=== PATIENT | male | born 1930 | race Caucasian/White ===

== ENCOUNTER 2016-08-11 08:59 | Emergency (ER) | payer MEDICARE, OTHER ==
[~2016-08-11 08:59] MED LIST: /WARF2TA PO; ALBUTEROL NEB; ALLO300T2 PO; BISO5TAB5 PO; FURO80TA2 PO; OMEP20CA3 PO; VITA100037 PO; WARF2TAB44 PO; WARF4TAB28 PO
[2016-08-11 09:32] LABS: BASO # 0.2 K/mm3 (0.0-0.2); BASO % 1.8 % (0.0-1.0); EOS # 0.3 K/mm3 (0.0-0.50); EOS % 3.2 % (0.0-3.0); LARGE UNSTAINED CELL # 0.1 K/mm3 (0.0-0.4); LARGE UNSTAINED CELL % 1.2 % (0.0-4.0); LYMPH % 7.9 % (24.0-44.0); MEAN CORPUSCULAR HEMOGLOBIN 30.6 pg (27.0-33.0); MEAN CORPUSCULAR HGB CONC 30.4 g/dl (32.0-36.5); MEAN CORPUSCULAR VOLUME 100.8 fl (80.0-96.0); MONO # 0.5 K/mm3 (0.0-0.8); MONO % 4.8 % (0.0-5.0); NEUTROPHILS # 8.6 K/mm3 (1.8-7.7); PLATELET COUNT, AUTOMATED 182 k/mm3 (150-450); RED CELL DISTRIBUTION WIDTH 15.6 % (11.5-14.5); WHITE BLOOD COUNT 10.7 K/mm3 (4.0-10.0)
[2016-08-11 09:35] LABS: INR 2.13
[2016-08-11 09:46] LABS: ALBUMIN 3.8 GM/DL (3.2-5.2); ALBUMIN/GLOBULIN RATIO 0.95 (1.00-1.93); ALKALINE PHOSPHATASE 123 U/L (45-117); ALT/SGPT 14 U/L (12-78); ANION GAP 6 MEQ/L (8-16); AST/SGOT 12 U/L (15-37); BILIRUBIN,DIRECT < 0.1 MG/DL (0.0-0.2); BILIRUBIN,TOTAL 0.4 MG/DL (0.2-1.0); BLOOD UREA NITROGEN 25 MG/DL (7-18); CALCIUM LEVEL 9.5 MG/DL (8.8-10.2); CARBON DIOXIDE LEVEL 33 MEQ/L (21-32); CHLORIDE LEVEL 103 MEQ/L (98-107); CREATININE FOR GFR 1.29 MG/DL (0.70-1.30); GLOMERULAR FILTRATION RATE 56.4 (>35); GLUCOSE, FASTING 115 MG/DL (83-110); POTASSIUM SERUM 3.9 MEQ/L (3.5-5.1); SODIUM LEVEL 142 MEQ/L (136-145); TOTAL PROTEIN 7.8 GM/DL (6.4-8.2)
[2016-08-11] MEDS ORDERED: NITROFURANTOIN (MACROBID) 100 MG CAP As Ordered ONE (11:44)
--- NOTE | 2016-08-11 12:16 | EDDOCDS ---
Physician Documentation [facility] Name: Milind Lamas Age: 86 yrs Sex: Male : 1930 Arrival Date: 08/11/2016 Time: 08:59 Bed 2 Private MD: Disposition: 08/11/16 11:42 Discharged to Home/Self Care. Impression: Urinary tract infection, site not specified. - Condition is Stable. - Discharge Instructions: Urinary Tract Infection, Altered Mental Status. - Prescriptions for Macrobid 100 mg Oral Capsule - take 100 milligrams by ORAL route every 12 hours for 7 days; 14 capsule. - Medication Reconciliation, Local Pharmacy Hours form. - Follow up: Aniya Loyola; When: 2 - 3 days; Reason: Recheck today's complaints. - Problem is new. - Symptoms are unchanged. - Notes: You were seen in the ED for concerns of altered mental status. Urine test showed urinary tract infection. Bloodwork along with chest Xray and CT scan of the head showed no other acute findings. You may take the antibiotics as written and will need to see your primary doctor for follow up and recheck. Please call to arrange to be seen. Return to the ED for any worsening confusion, fever, vomiting, chest pain, trouble breathing or any other concerns. Historical: - Allergies: no known allergies; - Home Meds: 1. Tylenol 1000 mg Oral three times a day 2. allopurinol 300 mg Oral tab 1 tab once daily 3. furosemide 80 mg Oral tab 1 tab once daily 4. gabapentin 400 mg oral tab 3 times per day 5. omeprazole 20 mg Oral cpDR 1 cap once daily 6. Vitamin D Oral 1,000 unit daily 7. iron 50mg daily 8. magnesium 250 mg daily 9. tamsulosin 0.4 mg oral cp24 1 cap once daily 10. warfarin 1 mg Oral tab 1 tab once daily - PMHx: bladder cancer; lung cancer; - PSHx: Appendectomy; Lobectomy; - Social history: Smoking status: Patient states former smoker of tobacco. No barriers to communication noted, The patient speaks fluent Colombian, Speaks appropriately for age. - Family history: Not pertinent. - : The pt / caregiver states he / she is on anticoagulants: coumadin. Note unable yto verify- has med list of when he takes meds and doses. - Exposure Risk Screening:: None identified. Vital Signs: 08/11 09:07 BP 120 / 57; Pulse 117; Resp 18; Temp 98.2(TE); Pulse Ox 86% on R/A; Weight 92.12 kg / ml6 203.09 lbs (M); Height 5 ft. 8 in. (172.72 cm) (R); Pain 0/10; 09:21 Pulse 99; Resp 16; Pulse Ox 98% on 2 lpm NC; ml6 10:30 BP 124 / 74 (auto/); ml6 10:30 Pulse 102 MON; Resp 18; Pulse Ox 97% on 2 lpm NC; ml6 10:45 BP 108 / 79 (auto/); ml6 10:45 Pulse 101 MON; Resp 16; Pulse Ox 98% on 2 lpm NC; ml6 11:00 BP 123 / 76 (auto/); ml6 11:00 Pulse 108 MON; Resp 16; Pulse Ox 98% on 2 lpm NC; Pain 0/10; ml6 11:15 BP 138 / 70 (auto/); ml6 11:15 Pulse 108 MON; Resp 16; Pulse Ox 98% on R/A; Pain 0/10; ml6 11:30 BP 102 / 66 (auto/); ml6 11:30 Pulse 100 MON; Resp 18; Temp 98.3(O); Pulse Ox 98% on R/A; Pain 0/10; ml6 12:14 BP 128 / 68; Pulse 95; Resp 16; Temp 98.4(O); Pulse Ox 97% on R/A; Pain 0/10; ml6 09:07 Body Mass Index 30.88 (92.12 kg, 172.72 cm) ml6 MDM: 09:24 Sitecore Developer/Pulse Ox/q 15 min VS ordered. br1 09:24 IV Saline Lock ordered. br1 09:24 Rhythm Strip to chart ordered. br1 09:25 CBC with Diff Ordered. EDMS 09:25 Cardiac Injury Profile Ordered. EDMS 09:25 Liver Profile Ordered. EDMS 09:25 MED Profile Ordered. EDMS 09:25 Thyroid Stimulating Hormone Ordered. EDMS 09:25 Troponin Ordered. EDMS 09:25 Urinalysis Ordered. EDMS 09:25 Urine Culture Ordered. EDMS 09:25 CT Head Without Contrast Ordered. EDMS 09:25 ECG WITH READING ER PHYS+CARDIAG ordered. EDMS 09:26 PT/INR Ordered. EDMS 09:26 PTT Ordered. EDMS 09:27 Chest, 2 View (pa\E\lat) Ordered. EDMS 09:55 CBC with Diff Reviewed. br1 09:55 Cardiac Injury Profile Reviewed. br1 09:55 Liver Profile Reviewed. br1 09:55 MED Profile Reviewed. br1 09:55 PT/INR Reviewed. br1 09:55 PTT Reviewed. br1 09:55 Thyroid Stimulating Hormone Reviewed. br1 09:55 Troponin Reviewed. br1 10:32 Financial registration complete. lg 10:32 [facility] Payment Agreement was scanned into [employer] and attached to record. lg 10:37 Misc. Nursing Order ordered. br1 11:29 Urinalysis Reviewed. br1 11:32 Nitrofurantoin 100 mg PO once ordered. br1 Administered Medications: 12:12 Drug: Nitrofurantoin 100 mg Route: PO; ml6 Signatures: Dispatcher [employer] EDAlisa Burgess, RN RN srm Katina Okeefe, Reg Reg Troy Beyer MD MD br1 [address]o [address] RN RN ml6 The chart was reviewed and I authenticate all verbal orders and agree with the evaluation and treatment provided.Corrections: (The following items were deleted from the chart) 11:03 10:37 Straight cath ordered. br1 ml6 Attachments: 10:32 [facility] Payment Agreement lg MTDD
--- NOTE | 2016-08-11 12:16 | EDDOCDS ---
Nurse's Notes [facility] Name: Milind Lamas Age: 86 yrs Sex: Male : 1930 Arrival Date: 08/11/2016 Time: 08:59 Bed 2 Private MD: Diagnosis: Urinary tract infection, site not specified Presentation: 08/11 09:02 Presenting complaint: EMS states: pt unable to stand and use urinal today at home. srm family states he's a little altered today. yesterday started with productive cough. ems stats pt asking the same ques over and over again enroute to [facility]. FSBS 151. Adult Sepsis Screening: Patient has new or worsening altered mentation (1 point). Patient's respiratory rate is less than 22. Systolic blood pressure is greater than 100. Patient has a qSOFA score of 1- Negative Sepsis Screen. Suicide/Homicide risk assessment- the patient denies having any suicidal and/or homicidal ideations and does not present with any other emotional, behavioral or mental health complaints. Status: Patient is not a member services coordinator or dependent. Transition of care: patient was not received from another setting of care. 09:02 Acuity: MORENA Level 2 [facility] 09:02 Method Of Arrival: Ambulance [facility] 09:11 Care prior to arrival: Glucose check. 151. [facility] Triage Assessment: 09:08 General: Appears in no apparent distress, Behavior is appropriate for age, cooperative. [facility] Pain: Denies pain. Neurological: Level of Consciousness is awake, alert, Oriented to person, place, Facial symmetry appears normal. Historical: - Allergies: no known allergies; - Home Meds: 1. Tylenol 1000 mg Oral three times a day 2. allopurinol 300 mg Oral tab 1 tab once daily 3. furosemide 80 mg Oral tab 1 tab once daily 4. gabapentin 400 mg oral tab 3 times per day 5. omeprazole 20 mg Oral cpDR 1 cap once daily 6. Vitamin D Oral 1,000 unit daily 7. iron 50mg daily 8. magnesium 250 mg daily 9. tamsulosin 0.4 mg oral cp24 1 cap once daily 10. warfarin 1 mg Oral tab 1 tab once daily - PMHx: bladder cancer; lung cancer; - PSHx: Appendectomy; Lobectomy; - Social history: Smoking status: Patient states former smoker of tobacco. No barriers to communication noted, The patient speaks fluent Lebanese, Speaks appropriately for age. - Family history: Not pertinent. - : The pt / caregiver states he / she is on anticoagulants: coumadin. Note unable yto verify- has med list of when he takes meds and doses. - Exposure Risk Screening:: None identified. Screenin:09 Advance Directives: There is an active DNR order and the pt has a copy here at this srm time. There is an active Power of Core Manager, gaby pena. home support is adequate. 12:15 Screening information is obtained from the patient. Fall risk: No risks identified. ml6 Assistance ADL's: requires no assistance with activities of daily living. Abuse/DV Screen: The patient / caregiver reports he/she is: not in a situation that causes fear, pain or injury. Nutritional screening: No deficits noted. Assessment: 09:20 General: Appears in no apparent distress, Behavior is appropriate for age, cooperative. ml6 Pain: Denies pain. Neurological: Level of Consciousness is awake, alert, Oriented to person, place, time, Grocery Clerk Stocking are equal bilaterally Moves all extremities. Full function Speech is normal, Facial symmetry appears normal, Pupils are PERRLA. Cardiovascular: No deficits noted. Capillary refill < 3 seconds is brisk in bilateral fingers toes Heart tones S1 S2 present. Respiratory: No deficits noted. Airway is patent Respiratory effort is even, unlabored, Respiratory pattern is regular, symmetrical. GI: No deficits noted. 10:20 Reassessment: Patient appears in no apparent distress at this time. Patient denies pain ml6 at this time. Patient states feeling better. Patient states symptoms have improved. 11:20 Reassessment: Patient appears in no apparent distress at this time. Patient denies pain ml6 at this time. Patient states feeling better. Patient states symptoms have improved. 12:13 General: Appears in no apparent distress, Behavior is appropriate for age, cooperative. ml6 Pain: Denies pain. Neurological: No deficits noted. Cardiovascular: No deficits noted. Capillary refill < 3 seconds is brisk in bilateral fingers toes Heart tones S1 S2 present. Respiratory: No deficits noted. Airway is patent Respiratory effort is even, unlabored, Respiratory pattern is regular, symmetrical. GI: No deficits noted. Vital Signs: 09:07 BP 120 / 57; Pulse 117; Resp 18; Temp 98.2(TE); Pulse Ox 86% on R/A; Weight 92.12 kg ml6 (M); Height 5 ft. 8 in. (172.72 cm) (R); Pain 0/10; 09:21 Pulse 99; Resp 16; Pulse Ox 98% on 2 lpm NC; ml6 10:30 BP 124 / 74 (auto/); ml6 10:30 Pulse 102 MON; Resp 18; Pulse Ox 97% on 2 lpm NC; ml6 10:45 BP 108 / 79 (auto/); ml6 10:45 Pulse 101 MON; Resp 16; Pulse Ox 98% on 2 lpm NC; ml6 11:00 BP 123 / 76 (auto/); ml6 11:00 Pulse 108 MON; Resp 16; Pulse Ox 98% on 2 lpm NC; Pain 0/10; ml6 11:15 BP 138 / 70 (auto/); ml6 11:15 Pulse 108 MON; Resp 16; Pulse Ox 98% on R/A; Pain 0/10; ml6 11:30 BP 102 / 66 (auto/); ml6 11:30 Pulse 100 MON; Resp 18; Temp 98.3(O); Pulse Ox 98% on R/A; Pain 0/10; ml6 12:14 BP 128 / 68; Pulse 95; Resp 16; Temp 98.4(O); Pulse Ox 97% on R/A; Pain 0/10; ml6 09:07 Body Mass Index 30.88 (92.12 kg, 172.72 cm) ml6 Vitals: 09:07 Log In Time N/A - ambulance arrival. nb2 ED Course: 09:01 Patient visited by Maureen Ambriz PCA. ar3 09:01 Patient moved to Waiting ar3 09:01 Patient moved to 2 srm 09:03 Triage Initiated srm 09:07 Patient visited by Lexie Amaya. nb2 09:07 Placed in gown. Bed in low position. Call light in reach. Side rails up X2. Cardiac nb2 monitor on. Pulse ox on. NIBP on. 09:14 Troy Beyer MD is Attending Physician. br1 09:19 The patient / caregiver is instructed regarding the plan of care and ED course. ml6 09:19 Inserted peripheral IV: 20gauge IV in right forearm and blood collected. Patient ml6 tolerated the procedure well. No procedures done that require assistance. Labs drawn. (by ED staff). Sent per order to lab. O2 via nasal cannula \T\ 2L/min. 09:23 Patient visited by Troy Beyer MD. br1 09:36 Patient visited by Marquita Vela. dem1 09:36 EKG done. (by ED staff). Reviewed by Troy Beyer MD. dem1 09:53 Patient visited by Neto [address] RN. ml6 10:32 Patient name changed from Milind\S\\S\Compeau\S\ to Milind\S\J\S\Compeau. EDMS 10:32 [facility] Payment Agreement was scanned into [employer] and attached to record. lg 10:34 Patient visited by Neto Street RN. ml6 11:03 Urinalysis Sent. ml6 11:03 Urine Culture Sent. ml6 11:04 Patient visited by Neto Street RN. ml6 11:32 Patient visited by Troy Beyer MD. br1 11:42 Aniya Loyola is Referral Physician. br1 12:15 Discontinued IV bleeding controlled, pressure dressing applied, No redness/swelling at ml6 site. Administered Medications: 12:12 Drug: Nitrofurantoin 100 mg Route: PO; ml6 Order Results: Lab Order: CBC with Diff; SPEC'M 08/11/16 09:13 Test: WHITE BLOOD COUNT; Value: 10.7; Range: 4.0-10.0; Abnormal: Above high normal; Units: K/mm3; Status: F Test: RED BLOOD COUNT; Value: 3.80; Range: 4.30-6.10; Abnormal: Below low normal; Units: M/mm3; Status: F Test: HEMOGLOBIN; Value: 11.6; Range: 14.0-18.0; Abnormal: Below low normal; Units: g/dl; Status: F Test: HEMATOCRIT; Value: 38.3; Range: 42.0-52.0; Abnormal: Below low normal; Units: %; Status: F Test: MEAN CORPUSCULAR VOLUME; Value: 100.8; Range: 80.0-96.0; Abnormal: Above high normal; Units: fl; Status: F Test: MEAN CORPUSCULAR HEMOGLOBIN; Value: 30.6; Range: 27.0-33.0; Units: pg; Status: F Test: MEAN CORPUSCULAR HGB CONC; Value: 30.4; Range: 32.0-36.5; Abnormal: Below low normal; Units: g/dl; Status: F Test: RED CELL DISTRIBUTION WIDTH; Value: 15.6; Range: 11.5-14.5; Abnormal: Above high normal; Units: %; Status: F Test: PLATELET COUNT, AUTOMATED; Value: 182; Range: 150-450; Units: k/mm3; Status: F Test: NEUTROPHILS %; Value: 81.0; Range: 36.0-66.0; Abnormal: Above high normal; Units: %; Status: F Test: LYMPH %; Value: 7.9; Range: 24.0-44.0; Abnormal: Below low normal; Units: %; Status: F Test: MONO %; Value: 4.8; Range: 0.0-5.0; Units: %; Status: F Test: EOS %; Value: 3.2; Range: 0.0-3.0; Abnormal: Above high normal; Units: %; Status: F Test: BASO %; Value: 1.8; Range: 0.0-1.0; Abnormal: Above high normal; Units: %; Status: F Test: LARGE UNSTAINED CELL %; Value: 1.2; Range: 0.0-4.0; Units: %; Status: F Test: NEUTROPHILS #; Value: 8.6; Range: 1.8-7.7; Abnormal: Above high normal; Units: K/mm3; Status: F Test: LYMPH #; Value: 1.0; Range: 1.5-4.5; Abnormal: Below low normal; Units: K/mm3; Status: F Test: MONO #; Value: 0.5; Range: 0.0-0.8; Units: K/mm3; Status: F Test: EOS #; Value: 0.3; Range: 0.0-0.50; Units: K/mm3; Status: F Test: BASO #; Value: 0.2; Range: 0.0-0.2; Units: K/mm3; Status: F Test: LARGE UNSTAINED CELL #; Value: 0.1; Range: 0.0-0.4; Units: K/mm3; Status: F Lab Order: Cardiac Injury Profile; [facility]08/11/16 09:13 Test: CPK CREATINE PHOSPHOKINASE; Value: 30; Range: 39-308; Abnormal: Below low normal; Units: U/L; Status: F Test: CK-MB VALUE MASS; Value: 1.0; Range: 0.0-3.6; Units: NG/ML; Status: F Test: MB/CK RELATIVE INDEX; Value: 3.33; Range: < OR =4; Status: F Test Note: ; DIAGNOSIS CRITERIA MMB ng/ml Relative Index (RI) NON-AMI < or = 5 N/A [place] > 5 < or = 4 AMI > 5 > 4 Lab Order: Liver Profile; [facility]08/11/16 09:13 Test: AST/SGOT; Value: 12; Range: 15-37; Abnormal: Below low normal; Units: U/L; Status: F Test: ALT/SGPT; Value: 14; Range: 12-78; Units: U/L; Status: F Test: ALKALINE PHOSPHATASE; Value: 123; Range: 45-117; Abnormal: Above high normal; Units: U/L; Status: F Test: BILIRUBIN,TOTAL; Value: 0.4; Range: 0.2-1.0; Units: MG/DL; Status: F Test: BILIRUBIN,DIRECT; Value: < 0.1; Range: 0.0-0.2; Units: MG/DL; Status: F Test: TOTAL PROTEIN; Value: 7.8; Range: 6.4-8.2; Units: GM/DL; Status: F Test: ALBUMIN; Value: 3.8; Range: 3.2-5.2; Units: GM/DL; Status: F Test: ALBUMIN/GLOBULIN RATIO; Value: 0.95; Range: 1.00-1.93; Abnormal: Below low normal; Status: F Lab Order: MED Profile; [facility]08/11/16 09:13 Test: GLUCOSE, FASTING; Value: 115; Range: 83-110; Abnormal: Above high normal; Units: MG/DL; Status: F Test: BLOOD UREA NITROGEN; Value: 25; Range: 7-18; Abnormal: Above high normal; Units: MG/DL; Status: F Test: CREATININE FOR GFR; Value: 1.29; Range: 0.70-1.30; Units: MG/DL; Status: F Test: GLOMERULAR FILTRATION RATE; Value: 56.4; Range: >35; Status: F Test: SODIUM LEVEL; Value: 142; Range: 136-145; Units: MEQ/L; Status: F Test: POTASSIUM SERUM; Value: 3.9; Range: 3.5-5.1; Units: MEQ/L; Status: F Test: CHLORIDE LEVEL; Value: 103; Range: 98-107; Units: MEQ/L; Status: F Test: CARBON DIOXIDE LEVEL; Value: 33; Range: 21-32; Abnormal: Above high normal; Units: MEQ/L; Status: F Test: ANION GAP; Value: 6; Range: 8-16; Abnormal: Below low normal; Units: MEQ/L; Status: F Test: CALCIUM LEVEL; Value: 9.5; Range: 8.8-10.2; Units: MG/DL; Status: F Test Note: ; Units are mL/min/1.73 m2 Chronic Kidney Disease Staging per NKF: Stage I & II GFR >=60 Normal to Mildly Decreased Stage III GFR 30-59 Moderately Decreased Stage IV GFR 15-29 Severely Decreased Stage V GFR <15 Very Little GFR Left ESRD GFR <15 on RESIDENTIAL INSURANCE INSPECTOR Lab Order: Thyroid Stimulating Hormone; SPEC'M 08/11/16 09:13 Test: THYROID STIMULATING HORMONE; Value: 1.100; Range: 0.358-3.740; Units: uIU/ML; Status: F Lab Order: Troponin; SPEC'M 08/11/16 09:13 Test: TROPONIN I; Value: < 0.02; Range: < 0.10; Units: NG/ML; Status: F Test Note: ; Troponin I Reference Interval for Elevate HR LOCI: 99th Percentile= 0.00-0.045 ng/ml Risk Stratification: <= 0.10 ng/ml Decreased Risk for Adverse Clinical Events. 0.10-1.50 ng/ml Increased Risk for Adverse Clinical Events. Evaluation of additional criterion and/or repeat testing in 2-6 hours is suggested to rule out myocardial damage. >= 1.50 ng/ml Indicative of Myocardial Injury. Lab Order: Urinalysis; SPEC'M 08/11/16 11:00 Test: APPEARANCE, URINE; Value: CLOUDY; Range: CLEAR; Abnormal: Above high normal; Status: F Test: COLOR, URINE; Value: YELLOW; Range: YELLOW; Status: F Test: PH,URINE; Value: 5.0; Range: 5.0-9.0; Units: UNITS; Status: F Test: SPECIFIC GRAVITY URINE AUTO; Value: 1.024; Range: 1.002-1.035; Status: F Test: PROTEIN, URINE AUTO; Value: NEGATIVE; Range: NEGATIVE; Units: mg/dL; Status: F Test: GLUCOSE, URINE (UA) AUTO; Value: NEGATIVE; Range: NEGATIVE; Units: mg/dL; Status: F Test: KETONE, URINE AUTO; Value: NEGATIVE; Range: NEGATIVE; Units: mg/dL; Status: F Test: UROBILINOGEN, URINE AUTO; Value: 0.2; Range: 0.0-2.0; Units: mg/dL; Status: F Test: BILIRUBIN, URINE AUTO; Value: NEGATIVE; Range: NEGATIVE; Status: F Test: NITRITE, URINE AUTO; Value: POSITIVE; Range: NEGATIVE; Status: F Test: LEUKOCYTE ESTERASE, URINE AUTO; Value: 3+; Range: NEGATIVE; Abnormal: Above high normal; Status: F Test: BLOOD, URINE BLOOD; Value: NEGATIVE; Range: NEGATIVE; Status: F Test: WBC, URINE AUTO; Value: TNTC; Range: 0-3; Abnormal: Above high normal; Units: /HPF; Status: F Test: RBC, URINE AUTO; Value: 7; Range: 0-3; Abnormal: Above high normal; Units: /HPF; Status: F Test: BACTERIA, URINE AUTO; Value: 1+; Range: NEGATIVE; Abnormal: Above high normal; Status: F Test: SQUAMOUS EPITHELIAL CELL UR AU; Value: 1; Range: 0-6; Units: /HPF; Status: F Test: MUCUS, URINE; Value: SMALL; Range: NEGATIVE; Status: F Test: HYALINE CAST, URINE AUTO; Value: 0; Range: 0-1; Units: /LPF; Status: F Lab Order: PT/INR; SPEC'M 08/11/16 09:13 Test: PROTHROMBIN TIME; Value: 23.9; Range: 12.3-14.5; Abnormal: Above high normal; Units: SECONDS; Status: F Test: INR; Value: 2.13; Status: F Test Note: ; THERAPUTIC HUMAN INR VALUES INDICATIONS NORMAL RANGES PROPHYLAXIS/TREATMENT OF: VENOUS THROMBOSIS 2.0-3.0 PULMONARY EMBOLISM 2.0-3.0 PREVENTION OF SYSTEMIC EMBOLISM FROM: TISSUE HEART VALVES 2.0-3.0 ACUTE MYOCARDIAL INFARCTION 2.0-3.0 VALVULAR HEART DISEASE 2.0-3.0 ATRIAL FIBRILLATION 2.0-3.0 MECHANICAL VALVES(HIGH RISK) 2.5-3.5 RECURRENT MYOCARDIAL INFARCTION 2.5-3.5 Lab Order: PTT; SPEC'M 08/11/16 09:13 Test: PARTIAL THROMBOPLASTIN TIME; Value: 61.5; Range: 26.6-37.1; Abnormal: Above high normal; Units: SECONDS; Status: F Outcome: 11:42 Discharge ordered by Provider. br1 12:15 Discharge Assessment: patient administered narcotics - no. The following High Risk ml6 Discharge criteria are identified: None. Discharged to home ambulatory, with family. Condition: stable. Discharge instructions given to patient, Instructed on discharge instructions, follow up and referral plans. medication usage, Demonstrated understanding of instructions, medications, Pt was receptive of discharge instructions/ teaching. Prescriptions given X 1. CT Study completed. Property :Personal belongings accompany Pt. 12:16 Patient left the ED. ml6 Signatures: Dispatcher [employer] EDMS Alisa Hollingsworth, RN RN srm Katina Okeefe, Reg Reg lg Troy Beyer MD MD br1 Neto Street RN RN ml6 Maureen Ambriz, DAIRY CATTLE FARM MANAGER DAIRY CATTLE FARM MANAGER ar3 Marquita Vela Nicole nb2 Corrections: (The following items were deleted from the chart) 09:21 09:07 BP 120 / 57; Pulse 117bpm; Resp 18bpm; Pulse Ox 95% 2 lpm Nasal Cannula; Temp ml6 98.2F Temporal; Pain 0/10; nb2 09:21 09:21 Pulse Ox 98% 2 lpm Nasal Cannula; ml6 ml6 MTDD
--- NOTE | 2016-08-11 22:45 | REP ---
CT brain without contrast 08/11/16 Indication: altered mental status , evaluate for intracranial hemorrhage Comparison: CT brain 10/15/2012 Findings: There is moderate cerebral volume loss with mild progression. There is no intracranial hemorrhage or extra-axial fluid collection. There is no midline shift or mass effect. Periventricular and subcortical white matter hypodensities are consistent with chronic small vessel ischemic disease. There are extensive bilateral carotid siphon calcifications. There is opacified hypoplastic left sphenoid sinus; minimal fluid and/or mucoperiosteal thickening is seen within the right sphenoid sinus. There is thickening of the nasal turbinate mucosa, right greater than left. There are a few opacified mastoid air cells. Impression: Moderate cerebral volume loss with chronic small vessel ischemic disease. No acute intracranial pathology or hemorrhage Bilateral sphenoid sinusitis ; few opacified right mastoid air cells Signed by Libby Chavez MD 08/11/2016 10:36 P
--- NOTE | 2016-08-11 22:48 | REP ---
AP sitting and lateral chest radiograph 08/11/2016 Indication: Congestion, evaluate for pneumonia Comparison: CT chest without contrast 10/16/2012, AP and lateral chest radiograph 10/20/2012 Findings: Cardiac silhouette is mildly enlarged without change. Atherosclerotic changes are noted in the thoracic aorta. Volume loss in left hemithorax secondary to left sided lobectomy. Postsurgical clips are identified within the left lower neck at the thoracic inlet. There is pulmonary venous hypertension. Impression: Mild cardiomegaly persists . Volume loss in the left hemithorax secondary to prior left sided lobectomy Pulmonary venous hypertension. Bibasilar fibrotic scarring Signed by Libby Chavez MD 08/11/2016 10:39 P
--- NOTE | 2016-08-12 12:59 | ECGEPIP ---
Stationary ECG Study 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
--- NOTE | 2016-08-13 13:16 | EDDOCDS ---
Physician Documentation [facility] Name: Milind Lamas Age: 86 yrs Sex: Male : 1930 Arrival Date: 08/11/2016 Time: 08:59 Bed 2 Private MD: Disposition: 08/11/16 11:42 Discharged to Home/Self Care. Impression: Urinary tract infection, site not specified. - Condition is Stable. - Discharge Instructions: Urinary Tract Infection, Altered Mental Status. - Prescriptions for Macrobid 100 mg Oral Capsule - take 100 milligrams by ORAL route every 12 hours for 7 days; 14 capsule. - Medication Reconciliation, Local Pharmacy Hours form. - Follow up: Aniya Loyola; When: 2 - 3 days; Reason: Recheck today's complaints. - Problem is new. - Symptoms are unchanged. - Notes: You were seen in the ED for concerns of altered mental status. Urine test showed urinary tract infection. Bloodwork along with chest Xray and CT scan of the head showed no other acute findings. You may take the antibiotics as written and will need to see your primary doctor for follow up and recheck. Please call to arrange to be seen. Return to the ED for any worsening confusion, fever, vomiting, chest pain, trouble breathing or any other concerns. Historical: - Allergies: Nitrofurantoin Macrocrystal (Unknown); - Home Meds: 1. Tylenol 1000 mg Oral three times a day 2. allopurinol 300 mg Oral tab 1 tab once daily 3. furosemide 80 mg Oral tab 1 tab once daily 4. gabapentin 400 mg oral tab 3 times per day 5. omeprazole 20 mg Oral cpDR 1 cap once daily 6. Vitamin D Oral 1,000 unit daily 7. iron 50mg daily 8. magnesium 250 mg daily 9. tamsulosin 0.4 mg oral cp24 1 cap once daily 10. warfarin 1 mg Oral tab 1 tab once daily - PMHx: bladder cancer; lung cancer; - PSHx: Appendectomy; Lobectomy; - Social history: Smoking status: Patient states former smoker of tobacco. No barriers to communication noted, The patient speaks fluent Croatian, Speaks appropriately for age. - Family history: Not pertinent. - : The pt / caregiver states he / she is on anticoagulants: coumadin. Note unable yto verify- has med list of when he takes meds and doses Note Please note that at time of patient arrival, pt listed no known allergies. Chart has been updated to reflect allergies that has profiled at [facility]. - Exposure Risk Screening:: None identified. Vital Signs: 08/11 09:07 BP 120 / 57; Pulse 117; Resp 18; Temp 98.2(TE); Pulse Ox 86% on R/A; Weight 92.12 kg / ml6 203.09 lbs (M); Height 5 ft. 8 in. (172.72 cm) (R); Pain 0/10; 09:21 Pulse 99; Resp 16; Pulse Ox 98% on 2 lpm NC; ml6 10:30 BP 124 / 74 (auto/); ml6 10:30 Pulse 102 MON; Resp 18; Pulse Ox 97% on 2 lpm NC; ml6 10:45 BP 108 / 79 (auto/); ml6 10:45 Pulse 101 MON; Resp 16; Pulse Ox 98% on 2 lpm NC; ml6 11:00 BP 123 / 76 (auto/); ml6 11:00 Pulse 108 MON; Resp 16; Pulse Ox 98% on 2 lpm NC; Pain 0/10; ml6 11:15 BP 138 / 70 (auto/); ml6 11:15 Pulse 108 MON; Resp 16; Pulse Ox 98% on R/A; Pain 0/10; ml6 11:30 BP 102 / 66 (auto/); ml6 11:30 Pulse 100 MON; Resp 18; Temp 98.3(O); Pulse Ox 98% on R/A; Pain 0/10; ml6 12:14 BP 128 / 68; Pulse 95; Resp 16; Temp 98.4(O); Pulse Ox 97% on R/A; Pain 0/10; ml6 09:07 Body Mass Index 30.88 (92.12 kg, 172.72 cm) ml6 MDM: 09:24 Used Car Lot Attendant/Pulse Ox/q 15 min VS ordered. br1 09:24 IV Saline Lock ordered. br1 09:24 Rhythm Strip to chart ordered. br1 09:25 CBC with Diff Ordered. EDMS 09:25 Cardiac Injury Profile Ordered. EDMS 09:25 Liver Profile Ordered. EDMS 09:25 MED Profile Ordered. EDMS 09:25 Thyroid Stimulating Hormone Ordered. EDMS 09:25 Troponin Ordered. EDMS 09:25 Urinalysis Ordered. EDMS 09:25 Urine Culture Ordered. EDMS 09:25 CT Head Without Contrast Ordered. EDMS 09:25 ECG WITH READING ER PHYS+CARDIAG ordered. EDMS 09:26 PT/INR Ordered. EDMS 09:26 PTT Ordered. EDMS 09:27 Chest, 2 View (pa\E\lat) Ordered. EDMS 09:55 CBC with Diff Reviewed. br1 09:55 Cardiac Injury Profile Reviewed. br1 09:55 Liver Profile Reviewed. br1 09:55 MED Profile Reviewed. br1 09:55 PT/INR Reviewed. br1 09:55 PTT Reviewed. br1 09:55 Thyroid Stimulating Hormone Reviewed. br1 09:55 Troponin Reviewed. br1 10:32 Financial registration complete. lg 10:32 [facility] Payment Agreement was scanned into [employer] and attached to record. lg 10:37 [facility]. br1 11:29 Urinalysis Reviewed. br1 11:32 Nitrofurantoin 100 mg PO once ordered. br1 14:29 T-Sheet-- Draft Copy was scanned into [employer] and attached to record. gb 14:29 ECG/EKG was scanned into [employer] and attached to record. gb 14:29 Radiology Report was scanned into [employer] and attached to record. gb 14:30 PCR was scanned into [employer] and attached to record. gb 14:30 Rhythm Strip was scanned into [employer] and attached to record. gb Administered Medications: 12:12 Drug: Nitrofurantoin 100 mg Route: PO; ml6 Signatures: Dispatcher [employer] EDMS Alisa Hollingsworth, RN RN srm Natty Mosher, Reg Reg gb Katina Okeefe, Reg Reg lg Troy Beyer MD MD br[address] RN RN ml6 Mirna Rosas, RN RN jc4 The chart was reviewed and I authenticate all verbal orders and agree with the evaluation and treatment provided.Corrections: (The following items were deleted from the chart) 11:03 10:37 Straight cath ordered. br1 ml6 13:15 09:08 Allergies: no known allergies; srm jc4 Attachments: 10:32 [facility] Payment Agreement lg 14:29 T-Sheet-- Draft Copy gb 14:29 ECG/EKG gb Chart Complete MTDD
--- NOTE | 2016-08-13 13:16 | EDDOCDS ---
Physician Documentation [facility] Name: Milind Lamas Age: 86 yrs Sex: Male : 1930 Arrival Date: 08/11/2016 Time: 08:59 Bed 2 Private MD: Disposition: 08/11/16 11:42 Discharged to Home/Self Care. Impression: Urinary tract infection, site not specified. - Condition is Stable. - Discharge Instructions: Urinary Tract Infection, Altered Mental Status. - Prescriptions for Macrobid 100 mg Oral Capsule - take 100 milligrams by ORAL route every 12 hours for 7 days; 14 capsule. - Medication Reconciliation, Local Pharmacy Hours form. - Follow up: Aniya Loyola; When: 2 - 3 days; Reason: Recheck today's complaints. - Problem is new. - Symptoms are unchanged. - Notes: You were seen in the ED for concerns of altered mental status. Urine test showed urinary tract infection. Bloodwork along with chest Xray and CT scan of the head showed no other acute findings. You may take the antibiotics as written and will need to see your primary doctor for follow up and recheck. Please call to arrange to be seen. Return to the ED for any worsening confusion, fever, vomiting, chest pain, trouble breathing or any other concerns. Historical: - Allergies: Nitrofurantoin Macrocrystal (Unknown); - Home Meds: 1. Tylenol 1000 mg Oral three times a day 2. allopurinol 300 mg Oral tab 1 tab once daily 3. furosemide 80 mg Oral tab 1 tab once daily 4. gabapentin 400 mg oral tab 3 times per day 5. omeprazole 20 mg Oral cpDR 1 cap once daily 6. Vitamin D Oral 1,000 unit daily 7. iron 50mg daily 8. magnesium 250 mg daily 9. tamsulosin 0.4 mg oral cp24 1 cap once daily 10. warfarin 1 mg Oral tab 1 tab once daily - PMHx: bladder cancer; lung cancer; - PSHx: Appendectomy; Lobectomy; - Social history: Smoking status: Patient states former smoker of tobacco. No barriers to communication noted, The patient speaks fluent Malay, Speaks appropriately for age. - Family history: Not pertinent. - : The pt / caregiver states he / she is on anticoagulants: coumadin. Note unable yto verify- has med list of when he takes meds and doses Note Please note that at time of patient arrival, pt listed no known allergies. Chart has been updated to reflect allergies that has profiled at [facility]. - Exposure Risk Screening:: None identified. Vital Signs: 08/11 09:07 BP 120 / 57; Pulse 117; Resp 18; Temp 98.2(TE); Pulse Ox 86% on R/A; Weight 92.12 kg / ml6 203.09 lbs (M); Height 5 ft. 8 in. (172.72 cm) (R); Pain 0/10; 09:21 Pulse 99; Resp 16; Pulse Ox 98% on 2 lpm NC; ml6 10:30 BP 124 / 74 (auto/); ml6 10:30 Pulse 102 MON; Resp 18; Pulse Ox 97% on 2 lpm NC; ml6 10:45 BP 108 / 79 (auto/); ml6 10:45 Pulse 101 MON; Resp 16; Pulse Ox 98% on 2 lpm NC; ml6 11:00 BP 123 / 76 (auto/); ml6 11:00 Pulse 108 MON; Resp 16; Pulse Ox 98% on 2 lpm NC; Pain 0/10; ml6 11:15 BP 138 / 70 (auto/); ml6 11:15 Pulse 108 MON; Resp 16; Pulse Ox 98% on R/A; Pain 0/10; ml6 11:30 BP 102 / 66 (auto/); ml6 11:30 Pulse 100 MON; Resp 18; Temp 98.3(O); Pulse Ox 98% on R/A; Pain 0/10; ml6 12:14 BP 128 / 68; Pulse 95; Resp 16; Temp 98.4(O); Pulse Ox 97% on R/A; Pain 0/10; ml6 09:07 Body Mass Index 30.88 (92.12 kg, 172.72 cm) ml6 MDM: 09:24 Automation Test Developer/Pulse Ox/q 15 min VS ordered. br1 09:24 IV Saline Lock ordered. br1 09:24 Rhythm Strip to chart ordered. br1 09:25 CBC with Diff Ordered. EDMS 09:25 Cardiac Injury Profile Ordered. EDMS 09:25 Liver Profile Ordered. EDMS 09:25 MED Profile Ordered. EDMS 09:25 Thyroid Stimulating Hormone Ordered. EDMS 09:25 Troponin Ordered. EDMS 09:25 Urinalysis Ordered. EDMS 09:25 Urine Culture Ordered. EDMS 09:25 CT Head Without Contrast Ordered. EDMS 09:25 ECG WITH READING ER PHYS+CARDIAG ordered. EDMS 09:26 PT/INR Ordered. EDMS 09:26 PTT Ordered. EDMS 09:27 Chest, 2 View (pa\E\lat) Ordered. EDMS 09:55 CBC with Diff Reviewed. br1 09:55 Cardiac Injury Profile Reviewed. br1 09:55 Liver Profile Reviewed. br1 09:55 MED Profile Reviewed. br1 09:55 PT/INR Reviewed. br1 09:55 PTT Reviewed. br1 09:55 Thyroid Stimulating Hormone Reviewed. br1 09:55 Troponin Reviewed. br1 10:32 Financial registration complete. lg 10:32 [facility] Payment Agreement was scanned into [employer] and attached to record. lg 10:37 [facility] ordered. br1 11:29 Urinalysis Reviewed. br1 11:32 Nitrofurantoin 100 mg PO once ordered. br1 14:29 T-Sheet-- Draft Copy was scanned into [employer] and attached to record. gb 14:29 ECG/EKG was scanned into [employer] and attached to record. gb 14:29 Radiology Report was scanned into [employer] and attached to record. gb 14:30 PCR was scanned into [employer] and attached to record. gb 14:30 Rhythm Strip was scanned into [employer] and attached to record. gb Administered Medications: 12:12 Drug: Nitrofurantoin 100 mg Route: PO; ml6 Signatures: Dispatcher [employer] EDMS Alisa Hollingsworth, RN RN srm Natty Mosher, Reg Reg gb Katina Okeefe, Reg Reg lg Troy Beyer MD MD br[address] RN RN ml6 Mirna Rosas, RN RN jc4 The chart was reviewed and I authenticate all verbal orders and agree with the evaluation and treatment provided.Corrections: (The following items were deleted from the chart) 11:03 10:37 Straight cath ordered. br1 ml6 13:15 09:08 Allergies: no known allergies; srm jc4 Attachments: 10:32 [facility] Payment Agreement lg 14:29 T-Sheet-- Draft Copy gb 14:29 ECG/EKG gb Chart Complete MTDD
--- NOTE | 2016-08-13 13:17 | EDDOCDS ---
Nurse's Notes [facility] Name: Carolyne Lamas Age: 86 yrs Sex: Male : 1930 Arrival Date: 08/11/2016 Time: 08:59 Bed 2 Private MD: Diagnosis: Urinary tract infection, site not specified Presentation: 08/11 09:02 Presenting complaint: EMS states: pt unable to stand and use urinal today at home. srm family states he's a little altered today. yesterday started with productive cough. ems stats pt asking the same ques over and over again enroute to [facility]. FSBS 151. Adult Sepsis Screening: Patient has new or worsening altered mentation (1 point). Patient's respiratory rate is less than 22. Systolic blood pressure is greater than 100. Patient has a qSOFA score of 1- Negative Sepsis Screen. Suicide/Homicide risk assessment- the patient denies having any suicidal and/or homicidal ideations and does not present with any other emotional, behavioral or mental health complaints. 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 Transition of care: patient was not received from another setting of care. 09:02 Acuity: MORENA Level 2 [facility] 09:02 Method Of Arrival: Ambulance [facility] 09:11 Care prior to arrival: Glucose check. 151. [facility] Triage Assessment: 09:08 General: Appears in no apparent distress, Behavior is appropriate for age, cooperative. [facility] Pain: Denies pain. Neurological: Level of Consciousness is awake, alert, Oriented to person, place, Facial symmetry appears normal. Historical: - Allergies: Nitrofurantoin Macrocrystal (Unknown); - Home Meds: 1. Tylenol 1000 mg Oral three times a day 2. allopurinol 300 mg Oral tab 1 tab once daily 3. furosemide 80 mg Oral tab 1 tab once daily 4. gabapentin 400 mg oral tab 3 times per day 5. omeprazole 20 mg Oral cpDR 1 cap once daily 6. Vitamin D Oral 1,000 unit daily 7. iron 50mg daily 8. magnesium 250 mg daily 9. tamsulosin 0.4 mg oral cp24 1 cap once daily 10. warfarin 1 mg Oral tab 1 tab once daily - PMHx: bladder cancer; lung cancer; - PSHx: Appendectomy; Lobectomy; - Social history: Smoking status: Patient states former smoker of tobacco. No barriers to communication noted, The patient speaks fluent Lithuanian, Speaks appropriately for age. - Family history: Not pertinent. - : The pt / caregiver states he / she is on anticoagulants: coumadin. Note unable yto verify- has med list of when he takes meds and doses Note Please note that at time of patient arrival, pt listed no known allergies. Chart has been updated to reflect allergies that has profiled at [facility]. - Exposure Risk Screening:: None identified. Screenin:09 Advance Directives: There is an active DNR order and the pt has a copy here at this srm time. There is an active Power of Photocomposing Keyboard Operator, gaby pena. home support is adequate. 12:15 Screening information is obtained from the patient. Fall risk: No risks identified. ml6 Assistance ADL's: requires no assistance with activities of daily living. Abuse/DV Screen: The patient / caregiver reports he/she is: not in a situation that causes fear, pain or injury. Nutritional screening: No deficits noted. Assessment: 09:20 General: Appears in no apparent distress, Behavior is appropriate for age, cooperative. ml6 Pain: Denies pain. Neurological: Level of Consciousness is awake, alert, Oriented to person, place, time, Machine Rug Cleaner are equal bilaterally Moves all extremities. Full function Speech is normal, Facial symmetry appears normal, Pupils are PERRLA. Cardiovascular: No deficits noted. Capillary refill < 3 seconds is brisk in bilateral fingers toes Heart tones S1 S2 present. Respiratory: No deficits noted. Airway is patent Respiratory effort is even, unlabored, Respiratory pattern is regular, symmetrical. GI: No deficits noted. 10:20 Reassessment: Patient appears in no apparent distress at this time. Patient denies pain ml6 at this time. Patient states feeling better. Patient states symptoms have improved. 11:20 Reassessment: Patient appears in no apparent distress at this time. Patient denies pain ml6 at this time. Patient states feeling better. Patient states symptoms have improved. 12:13 General: Appears in no apparent distress, Behavior is appropriate for age, cooperative. ml6 Pain: Denies pain. Neurological: No deficits noted. Cardiovascular: No deficits noted. Capillary refill < 3 seconds is brisk in bilateral fingers toes Heart tones S1 S2 present. Respiratory: No deficits noted. Airway is patent Respiratory effort is even, unlabored, Respiratory pattern is regular, symmetrical. GI: No deficits noted. Vital Signs: 09:07 BP 120 / 57; Pulse 117; Resp 18; Temp 98.2(TE); Pulse Ox 86% on R/A; Weight 92.12 kg ml6 (M); Height 5 ft. 8 in. (172.72 cm) (R); Pain 0/10; 09:21 Pulse 99; Resp 16; Pulse Ox 98% on 2 lpm NC; ml6 10:30 BP 124 / 74 (auto/); ml6 10:30 Pulse 102 MON; Resp 18; Pulse Ox 97% on 2 lpm NC; ml6 10:45 BP 108 / 79 (auto/); ml6 10:45 Pulse 101 MON; Resp 16; Pulse Ox 98% on 2 lpm NC; ml6 11:00 BP 123 / 76 (auto/); ml6 11:00 Pulse 108 MON; Resp 16; Pulse Ox 98% on 2 lpm NC; Pain 0/10; ml6 11:15 BP 138 / 70 (auto/); ml6 11:15 Pulse 108 MON; Resp 16; Pulse Ox 98% on R/A; Pain 0/10; ml6 11:30 BP 102 / 66 (auto/); ml6 11:30 Pulse 100 MON; Resp 18; Temp 98.3(O); Pulse Ox 98% on R/A; Pain 0/10; ml6 12:14 BP 128 / 68; Pulse 95; Resp 16; Temp 98.4(O); Pulse Ox 97% on R/A; Pain 0/10; ml6 09:07 Body Mass Index 30.88 (92.12 kg, 172.72 cm) ml6 Vitals: 09:07 Log In Time N/A - ambulance arrival. nb2 ED Course: 09:01 Patient visited by Maureen Ambriz PCA. ar3 09:01 Patient moved to Waiting ar3 09:01 Patient moved to 2 srm 09:03 Triage Initiated srm 09:07 Patient visited by Lexie Amaya. nb2 09:07 Placed in gown. Bed in low position. Call light in reach. Side rails up X2. Cardiac nb2 monitor on. Pulse ox on. NIBP on. 09:14 Stacey Beyer MD is Attending Physician. br1 09:19 The patient / caregiver is instructed regarding the plan of care and ED course. ml6 09:19 Inserted peripheral IV: 20gauge IV in right forearm and blood collected. Patient ml6 tolerated the procedure well. No procedures done that require assistance. Labs drawn. (by ED staff). Sent per order to lab. O2 via nasal cannula \T\ 2L/min. 09:23 Patient visited by Stacey Beyer MD. br1 09:36 Patient visited by Marquita Vela. dem1 09:36 EKG done. (by ED staff). Reviewed by Stacey Beyer MD. dem1 09:53 Patient visited by [address], [place]. ml6 10:32 Patient name changed from Carolyne\S\\S\Compeau\S\ to Carolyne\S\J\S\Compeau. EDMS 10:32 [facility] Payment Agreement was scanned into [employer] and attached to record. lg 10:34 Patient visited by Neto Street RN. ml6 11:03 Urinalysis Sent. ml6 11:03 Urine Culture Sent. ml6 11:04 Patient visited by Neto Street, [place]. ml6 11:32 Patient visited by Stacey Beyer MD. br1 11:42 Aniya Loyola is Referral Physician. br1 12:15 Discontinued IV bleeding controlled, pressure dressing applied, No redness/swelling at ml6 site. 14:29 T-Sheet-- Draft Copy was scanned into [employer] and attached to record. gb 14:29 ECG/EKG was scanned into [employer] and attached to record. gb 14:29 Radiology Report was scanned into [employer] and attached to record. gb 14:30 PCR was scanned into [employer] and attached to record. gb 14:30 Rhythm Strip was scanned into [employer] and attached to record. gb 22:57 CT Head Without Contrast Returned. EDMS 22:57 Chest, 2 View (pa\E\lat) Returned. EDMS 08/12 13:07 EKG-ADULT Returned. EDMS Administered Medications: 08/11 12:12 Drug: Nitrofurantoin 100 mg Route: PO; ml6 Attachments: 14:30 Rhythm Strip gb Order Results: Lab Order: CBC with Diff; SPEC'M 08/11/16 09:13 Test: WHITE BLOOD COUNT; Value: 10.7; Range: 4.0-10.0; Abnormal: Above high normal; Units: K/mm3; Status: F Test: RED BLOOD COUNT; Value: 3.80; Range: 4.30-6.10; Abnormal: Below low normal; Units: M/mm3; Status: F Test: HEMOGLOBIN; Value: 11.6; Range: 14.0-18.0; Abnormal: Below low normal; Units: g/dl; Status: F Test: HEMATOCRIT; Value: 38.3; Range: 42.0-52.0; Abnormal: Below low normal; Units: %; Status: F Test: MEAN CORPUSCULAR VOLUME; Value: 100.8; Range: 80.0-96.0; Abnormal: Above high normal; Units: fl; Status: F Test: MEAN CORPUSCULAR HEMOGLOBIN; Value: 30.6; Range: 27.0-33.0; Units: pg; Status: F Test: MEAN CORPUSCULAR HGB CONC; Value: 30.4; Range: 32.0-36.5; Abnormal: Below low normal; Units: g/dl; Status: F Test: RED CELL DISTRIBUTION WIDTH; Value: 15.6; Range: 11.5-14.5; Abnormal: Above high normal; Units: %; Status: F Test: PLATELET COUNT, AUTOMATED; Value: 182; Range: 150-450; Units: k/mm3; Status: F Test: NEUTROPHILS %; Value: 81.0; Range: 36.0-66.0; Abnormal: Above high normal; Units: %; Status: F Test: LYMPH %; Value: 7.9; Range: 24.0-44.0; Abnormal: Below low normal; Units: %; Status: F Test: MONO %; Value: 4.8; Range: 0.0-5.0; Units: %; Status: F Test: EOS %; Value: 3.2; Range: 0.0-3.0; Abnormal: Above high normal; Units: %; Status: F Test: BASO %; Value: 1.8; Range: 0.0-1.0; Abnormal: Above high normal; Units: %; Status: F Test: LARGE UNSTAINED CELL %; Value: 1.2; Range: 0.0-4.0; Units: %; Status: F Test: NEUTROPHILS #; Value: 8.6; Range: 1.8-7.7; Abnormal: Above high normal; Units: K/mm3; Status: F Test: LYMPH #; Value: 1.0; Range: 1.5-4.5; Abnormal: Below low normal; Units: K/mm3; Status: F Test: MONO #; Value: 0.5; Range: 0.0-0.8; Units: K/mm3; Status: F Test: EOS #; Value: 0.3; Range: 0.0-0.50; Units: K/mm3; Status: F Test: BASO #; Value: 0.2; Range: 0.0-0.2; Units: K/mm3; Status: F Test: LARGE UNSTAINED CELL #; Value: 0.1; Range: 0.0-0.4; Units: K/mm3; Status: F Lab Order: Cardiac Injury Profile; SPEC'M 08/11/16 09:13 Test: CPK CREATINE PHOSPHOKINASE; Value: 30; Range: 39-308; Abnormal: Below low normal; Units: U/L; Status: F Test: CK-MB VALUE MASS; Value: 1.0; Range: 0.0-3.6; Units: NG/ML; Status: F Test: MB/CK RELATIVE INDEX; Value: 3.33; Range: < OR =4; Status: F Test Note: ; DIAGNOSIS CRITERIA MMB ng/ml Relative Index (RI) NON-AMI < or = 5 N/A [place] > 5 < or = 4 AMI > 5 > 4 Lab Order: Liver Profile; SPEC'M 08/11/16 09:13 Test: AST/SGOT; Value: 12; Range: 15-37; Abnormal: Below low normal; Units: U/L; Status: F Test: ALT/SGPT; Value: 14; Range: 12-78; Units: U/L; Status: F Test: ALKALINE PHOSPHATASE; Value: 123; Range: 45-117; Abnormal: Above high normal; Units: U/L; Status: F Test: BILIRUBIN,TOTAL; Value: 0.4; Range: 0.2-1.0; Units: MG/DL; Status: F Test: BILIRUBIN,DIRECT; Value: < 0.1; Range: 0.0-0.2; Units: MG/DL; Status: F Test: TOTAL PROTEIN; Value: 7.8; Range: 6.4-8.2; Units: GM/DL; Status: F Test: ALBUMIN; Value: 3.8; Range: 3.2-5.2; Units: GM/DL; Status: F Test: ALBUMIN/GLOBULIN RATIO; Value: 0.95; Range: 1.00-1.93; Abnormal: Below low normal; Status: F Lab Order: MED Profile; SPEC'M 08/11/16 09:13 Test: GLUCOSE, FASTING; Value: 115; Range: 83-110; Abnormal: Above high normal; Units: MG/DL; Status: F Test: BLOOD UREA NITROGEN; Value: 25; Range: 7-18; Abnormal: Above high normal; Units: MG/DL; Status: F Test: CREATININE FOR GFR; Value: 1.29; Range: 0.70-1.30; Units: MG/DL; Status: F Test: GLOMERULAR FILTRATION RATE; Value: 56.4; Range: >35; Status: F Test: SODIUM LEVEL; Value: 142; Range: 136-145; Units: MEQ/L; Status: F Test: POTASSIUM SERUM; Value: 3.9; Range: 3.5-5.1; Units: MEQ/L; Status: F Test: CHLORIDE LEVEL; Value: 103; Range: 98-107; Units: MEQ/L; Status: F Test: CARBON DIOXIDE LEVEL; Value: 33; Range: 21-32; Abnormal: Above high normal; Units: MEQ/L; Status: F Test: ANION GAP; Value: 6; Range: 8-16; Abnormal: Below low normal; Units: MEQ/L; Status: F Test: CALCIUM LEVEL; Value: 9.5; Range: 8.8-10.2; Units: MG/DL; Status: F Test Note: ; Units are mL/min/1.73 m2 Chronic Kidney Disease Staging per NKF: Stage I & II GFR >=60 Normal to Mildly Decreased Stage III GFR 30-59 Moderately Decreased Stage IV GFR 15-29 Severely Decreased Stage V GFR <15 Very Little GFR Left ESRD GFR <15 on VENDING TECHNICIAN Lab Order: Thyroid Stimulating Hormone; SPEC'M 08/11/16 09:13 Test: THYROID STIMULATING HORMONE; Value: 1.100; Range: 0.358-3.740; Units: uIU/ML; Status: F Lab Order: Troponin; SPEC'M 08/11/16 09:13 Test: TROPONIN I; Value: < 0.02; Range: < 0.10; Units: NG/ML; Status: F Test Note: ; Troponin I Reference Interval for Siemens iSnap LOCI: 99th Percentile= 0.00-0.045 ng/ml Risk Stratification: <= 0.10 ng/ml Decreased Risk for Adverse Clinical Events. 0.10-1.50 ng/ml Increased Risk for Adverse Clinical Events. Evaluation of additional criterion and/or repeat testing in 2-6 hours is suggested to rule out myocardial damage. >= 1.50 ng/ml Indicative of Myocardial Injury. Lab Order: Urinalysis; SPEC'M 08/11/16 11:00 Test: APPEARANCE, URINE; Value: CLOUDY; Range: CLEAR; Abnormal: Above high normal; Status: F Test: COLOR, URINE; Value: YELLOW; Range: YELLOW; Status: F Test: PH,URINE; Value: 5.0; Range: 5.0-9.0; Units: UNITS; Status: F Test: SPECIFIC GRAVITY URINE AUTO; Value: 1.024; Range: 1.002-1.035; Status: F Test: PROTEIN, URINE AUTO; Value: NEGATIVE; Range: NEGATIVE; Units: mg/dL; Status: F Test: GLUCOSE, URINE (UA) AUTO; Value: NEGATIVE; Range: NEGATIVE; Units: mg/dL; Status: F Test: KETONE, URINE AUTO; Value: NEGATIVE; Range: NEGATIVE; Units: mg/dL; Status: F Test: UROBILINOGEN, URINE AUTO; Value: 0.2; Range: 0.0-2.0; Units: mg/dL; Status: F Test: BILIRUBIN, URINE AUTO; Value: NEGATIVE; Range: NEGATIVE; Status: F Test: NITRITE, URINE AUTO; Value: POSITIVE; Range: NEGATIVE; Status: F Test: LEUKOCYTE ESTERASE, URINE AUTO; Value: 3+; Range: NEGATIVE; Abnormal: Above high normal; Status: F Test: BLOOD, URINE BLOOD; Value: NEGATIVE; Range: NEGATIVE; Status: F Test: WBC, URINE AUTO; Value: TNTC; Range: 0-3; Abnormal: Above high normal; Units: /HPF; Status: F Test: RBC, URINE AUTO; Value: 7; Range: 0-3; Abnormal: Above high normal; Units: /HPF; Status: F Test: BACTERIA, URINE AUTO; Value: 1+; Range: NEGATIVE; Abnormal: Above high normal; Status: F Test: SQUAMOUS EPITHELIAL CELL UR AU; Value: 1; Range: 0-6; Units: /HPF; Status: F Test: MUCUS, URINE; Value: SMALL; Range: NEGATIVE; Status: F Test: HYALINE CAST, URINE AUTO; Value: 0; Range: 0-1; Units: /LPF; Status: F Lab Order: Urine Culture; SPEC'M 08/11/16 11:00 Test: URINE CULTURE; Value: ORGANISM 1: MORGANELLA MORGANII SSP JETHRO; Status: F Test: URINE CULTURE; Value: MORGANELLA MORGANII SSP JETHRO; Status: F Test: URINE CULTURE; Value: COLONY COUNT CFU/ml >100,000; Status: F Test: URINE CULTURE; Value: GRAM NEG SENSI - VITEK 80; Status: F Test: URINE CULTURE; Value: Method: VIT2; Status: F Test: URINE CULTURE; Value: TRIMETHOPRIM/SULFAMETHOXAZOLE <=20 S; Status: F Test: URINE CULTURE; Value: AMPICILLIN >=32 R; Status: F Test: URINE CULTURE; Value: GENTAMICIN <=1 S; Status: F Test: URINE CULTURE; Value: NITROFURANTOIN 256 R; Status: F Test: URINE CULTURE; Value: CEFAZOLIN >=64 R; Status: F Test: URINE CULTURE; Value: LEVOFLOXACIN <=0.12 S; Status: F Test: URINE CULTURE; Value: TOBRAMYCIN <=1 S; Status: F Test: URINE CULTURE; Value: CEFTRIAXONE <=1 S; Status: F Test: URINE CULTURE; Value: CEFTAZIDIME <=1 S; Status: F Test: URINE CULTURE; Value: AMPICILLIN/SULBACTAM 16 I; Status: F Test: URINE CULTURE; Value: PIPERACILLIN/TAZOBACTAM <=4 S; Status: F Test: URINE CULTURE; Value: AZTREONAM <=1 S; Status: F Test: URINE CULTURE; Value: ERTAPENEM <=0.5 S; Status: F Test: URINE CULTURE; Value: MEROPENEM <=0.25 S; Status: F Test: URINE CULTURE; Value: TIGECYCLINE 1 R; Status: F Test: URINE CULTURE; Value: CEFEPIME <=1 S; Status: F Lab Order: PT/INR; SPEC'M 08/11/16 09:13 Test: PROTHROMBIN TIME; Value: 23.9; Range: 12.3-14.5; Abnormal: Above high normal; Units: SECONDS; Status: F Test: INR; Value: 2.13; Status: F Test Note: ; THERAPUTIC HUMAN INR VALUES INDICATIONS NORMAL RANGES PROPHYLAXIS/TREATMENT OF: VENOUS THROMBOSIS 2.0-3.0 PULMONARY EMBOLISM 2.0-3.0 PREVENTION OF SYSTEMIC EMBOLISM FROM: TISSUE HEART VALVES 2.0-3.0 ACUTE MYOCARDIAL INFARCTION 2.0-3.0 VALVULAR HEART DISEASE 2.0-3.0 ATRIAL FIBRILLATION 2.0-3.0 MECHANICAL VALVES(HIGH RISK) 2.5-3.5 RECURRENT MYOCARDIAL INFARCTION 2.5-3.5 Lab Order: PTT; SPEC'M 08/11/16 09:13 Test: PARTIAL THROMBOPLASTIN TIME; Value: 61.5; Range: 26.6-37.1; Abnormal: Above high normal; Units: SECONDS; Status: F Radiology Order: CT Head Without Contrast Test: CT Head Without Contrast REASON FOR EXAMINATION: altered eval for ich; CT brain without contrast 08/11/16; ; Indication: altered mental status , evaluate for intracranial hemorrhage; ; Comparison: CT brain 10/15/2012; ; Findings: There is moderate cerebral volume loss with mild progression. There; is no intracranial hemorrhage or extra-axial fluid collection. There is no; midline shift or mass effect. Periventricular and subcortical white matter; hypodensities are consistent with chronic small vessel ischemic disease. There; are extensive bilateral carotid siphon calcifications.; ; There is opacified hypoplastic left sphenoid sinus; minimal fluid and/or; mucoperiosteal thickening is seen within the right sphenoid sinus. There is; thickening of the nasal turbinate mucosa, right greater than left.; ; There are a few opacified mastoid air cells.; ; Impression:; ; Moderate cerebral volume loss with chronic small vessel ischemic disease.; ; No acute intracranial pathology or hemorrhage; ; Bilateral sphenoid sinusitis ; few opacified right mastoid air cells; ; ; Signed by; Libby Chavez MD 08/11/2016 10:36 P; Radiology Order: EKG-ADULT Test: EKG-ADULT REASON FOR EXAMINATION: dysrhythmia; Stationary ECG Study; 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: dm; : 1930 Requested By: STACEY Lisa; Order Number: [id number] Reading MD: Alba Solano; Measurements; Intervals Onset; Rate: 97 P:; GA: 0 QRS: -15; QRSD: 76 T: 1; QT: 332; QTc: 423; Interpretive Statements; ATRIAL FIBRILLATION; SEPTAL MYOCARDIAL INFARCTION, PROBABLY OLD; LOW VOLTAGE LIMB; NSTTW ABNORMALITY; SIMILAR 10/15/12; Electronically Signed On 08-12-2016 12:58:51 EST by Alba Solano; Radiology Order: Chest, 2 View (pa\E\lat) Test: Chest, 2 View (pa\E\lat) REASON FOR EXAMINATION: congested, altered eval for pna; AP sitting and lateral chest radiograph 08/11/2016; ; Indication: Congestion, evaluate for pneumonia; ; Comparison: CT chest without contrast 10/16/2012, AP and lateral chest; radiograph 10/20/2012; ; Findings: Cardiac silhouette is mildly enlarged without change. Atherosclerotic; changes are noted in the thoracic aorta.; ; Volume loss in left hemithorax secondary to left sided lobectomy. Postsurgical; clips are identified within the left lower neck at the thoracic inlet. There is; pulmonary venous hypertension.; ; Impression: Mild cardiomegaly persists . Volume loss in the left hemithorax; secondary to prior left sided lobectomy; ; Pulmonary venous hypertension. Bibasilar fibrotic scarring; ; ; Signed by; Libby Chavez MD 08/11/2016 10:39 P; Outcome: 11:42 Discharge ordered by Provider. br1 12:15 Discharge Assessment: patient administered narcotics - no. The following High Risk ml6 Discharge criteria are identified: None. Discharged to home ambulatory, with family. Condition: stable. Discharge instructions given to patient, Instructed on discharge instructions, follow up and referral plans. medication usage, Demonstrated understanding of instructions, medications, Pt was receptive of discharge instructions/ teaching. Prescriptions given X 1. CT Study completed. Property :Personal belongings accompany Pt. 12:16 Patient left the ED. ml6 13:10 Received call from Yusef Kaplan stating that patient had listed an allergy at [facility] for Nitrofurantoin in 1998. Reaction is unknown. Pharmacist states that patient is not present, [id number] is there to berry picker prescription and was unaware that patient had any allergies. Dr. Beyer consulted who states to cancel prescription for Macrobid and patient to begin taking Cipro 500 mg p.o. BID x 7 days. Chart updated to reflect patient allergy:. Signatures: Dispatcher [employer] EDMS Alisa Hollingsworth, RN RN srm Natty Mosher, Reg Reg gb Katina Okeefe, Reg Reg lg Stacey Beyer MD MD br1 Neto Street RN RN ml6 Maureen Ambriz, MIXED SIGNAL DESIGN ENGINEER MIXED SIGNAL DESIGN ENGINEER ar3 Mirna Rosas RN RN jc4 Marquita Vela dem1 Lexie Amaya nb2 Corrections: (The following items were deleted from the chart) 09:21 09:07 BP 120 / 57; Pulse 117bpm; Resp 18bpm; Pulse Ox 95% 2 lpm Nasal Cannula; Temp ml6 98.2F Temporal; Pain 0/10; nb2 09:21 09:21 Pulse Ox 98% 2 lpm Nasal Cannula; ml6 ml6 13:15 09:08 Allergies: no known allergies; [place] [id number] Chart Complete MTDD
== END 2016-08-11 12:16 | disposition home or self-care (01) ==
LOC: M ED 08:59
DX: N39.0 Urinary tract infection, site not specified (principal); Z85.51 Personal history of malignant neoplasm of bladder; Z85.118 Personal history of other malignant neoplasm of bronchus and lung; Z79.899 Other long term (current) drug therapy; Z79.01 Long term (current) use of anticoagulants; Z88.8 Allergy status to other drugs, medicaments and biological substances; Z87.891 Personal history of nicotine dependence